=== PATIENT | female | born 1960 | race Caucasian/White ===

== ENCOUNTER 2017-02-27 09:44 | Emergency (ER) | payer BC ==
--- NOTE | 2017-02-27 11:47 | ED Physician Documentation ---
PD HPI HEADACHE - Stated complaint Stated Complaint: HEADACHE - Chief complaint Chief Complaint: Neuro - History obtained from History obtained from: Patient - History of Present Illness Timing - onset: How many days ago (2) Timing - onset during: Light activity Timing - duration: Days (2) Timing - details: Gradual onset, Still present Worst headache ever?: No: Worst headache ever? Location: Front, Right Quality: Throbbing, Aching Associated symptoms: Nausea, Vision changes (light sensitive). No: Fever, Stiff neck, Vomiting, Numbness, Syncope Improved by: No: Meds Worsened by: Light, Noise Contributing factors: No: Anticoagulated, Recent illness, Trauma Similar symptoms before: Diagnosis (migraines intermittently) Recently seen: Not recently seen Review of Systems Constitutional: denies: Fever, Chills Nose: denies: Rhinorrhea / runny nose, Congestion, Sinus pressure / pain Throat: denies: Sore throat Cardiac: denies: Chest pain / pressure, Palpitations Respiratory: denies: Cough GI: reports: Nausea. denies: Abdominal Pain, Vomiting, Diarrhea Skin: denies: Rash, Lesions Neurologic: reports: Generalized weakness. denies: Focal weakness, Numbness, Difficulty speaking, Syncope Endocrine: denies: Weight loss, Easy bruising / bleeding PD PAST MEDICAL HISTORY - Past Medical History Past Medical History: Yes Neuro: Headache/migraine - Past Surgical History Past Surgical History: Yes /[employer]: Hysterectomy - Present Medications Home Medications: Ambulatory Orders Medication Instructions Recorded Confirmed Botox 02/27/17 Bupropion HCl [Bupropion Xl] 150 mg PO DAILY 02/27/17 02/27/17 Duloxetine HCl 60 mg PO BID 02/27/17 02/27/17 Estradiol [Estradiol Transdermal 02/27/17 Patch] Fluticasone Propionate [Flovent 02/27/17 Diskus] Meperidine HCl 50 mg PO PRN PRN 02/27/17 02/27/17 Metoclopramide [Reglan] 10 mg PO Q6H PRN #15 tablet 02/27/17 Oxycodone HCl/Acetaminophen 1 tab PO PRN PRN 02/27/17 02/27/17 [Oxycodone-Acetaminophen 5-325] Prednisone 10 mg PO DAILY #20 tablet 02/27/17 Prednisone 10 mg PO PRN PRN 02/27/17 02/27/17 Spheno 02/27/17 Sumatriptan Succinate [Imitrex] 6 mg SQ PRN PRN 02/27/17 02/27/17 Thyroid,Pork [[place] Thyroid] 90 mg PO DAILY 02/27/17 02/27/17 Zolpidem Tartrate 5 mg PO DAILY 02/27/17 02/27/17 - Allergies Allergies/Adverse Reactions: Allergies Allergy/AdvReac Type Severity Reaction Status Date / Time acetaminophen [From Vicodin] Allergy Unknown Verified 02/27/17 09:52 gabapentin [From Neurontin] Allergy Unknown Verified 02/27/17 09:52 hydrocodone bitartrate * Allergy Unknown Verified 02/27/17 09:52 [From Vicodin] oxycodone HCl * Allergy Unknown Verified 02/27/17 09:52 [From OxyContin] tizanidine HCl * Allergy Unknown Verified 02/27/17 09:52 [From Zanaflex] - Social History Does the pt smoke?: No Smoking Status: Never smoker PD ED PE NORMAL - Vitals Vital signs reviewed: Yes - General General: Alert and oriented X 3, Well developed/nourished, Other (appears uncomfortable and light sensitive. ) - HEENT HEENT: PERRL, EOMI, Moist mucous membranes, Pharynx benign - Neck Neck: Supple, no meningeal sign, No adenopathy - Cardiac Cardiac: RRR, No murmur - Respiratory Respiratory: Clear bilaterally - Abdomen Abdomen: Normal bowel sounds, Soft, Non tender - Back Back: No CVA TTP - Derm Derm: Normal color, No rash - Extremities Extremities: No tenderness to palpate, Normal ROM s pain, No edema, No calf tenderness / cord - Neuro Neuro: Alert and oriented X 3, adoption counselor 2-12 intact, No motor deficit, No sensory deficit, Normal speech - Psych Psych: Normal mood, Normal affect Results - Vitals Vitals: Oxygen O2 Source Room air PD MEDICAL DECISION MAKING - ED course Complexity details: considered differential (history of migraines periodically, is not local. Has care plan from her Neurologist which includes IV fluids, Phenergan and Demerol and is dated from 2012. Dicussed with patient common meds given for headache, but did also give dose of pain meds. Discussed with her that would want to see more uptodate care plan from a specialist for subsequent visits. ), d/w patient Departure - Departure Disposition: 01 Home, Self Care Clinical Impression: Migraine Qualifiers: Migraine type: unspecified Status migrainosus presence: without status migrainosus Intractability: not intractable Qualified Code(s): G43.909 - Migraine, unspecified, not intractable, without status migrainosus Condition: Stable Record reviewed to determine appropriate education?: Yes Instructions: ED Headache Migraine Prescriptions: Prednisone 10 mg PO DAILY #20 tablet Metoclopramide [Reglan] 10 mg PO Q6H PRN #15 tablet PRN Reason: Nausea / Vomiting Comments: Regular medications. Prednisone daily for 4-5 days. Reglan if needed for nausea. Discharge Date/Time: 02/27/17 13:52
[2017-02-27] MEDS ORDERED: SODIUM CHLORIDE 0.9% 1,000 ML IV ONE (12:02)
[2017-02-27] MEDS ORDERED: KETOROLAC 60 MG/2 ML VIAL IVP STA (12:02)
[2017-02-27] MEDS ORDERED: DEXAMETHASONE 10 MG/ML VIAL PO STA (12:03)
[2017-02-27] MEDS ORDERED: HYDROmorphone 1 MG/ML SYRINGE IVP STA ×2 (12:03→13:15)
[2017-02-27] MEDS ORDERED: METOCLOPRAMIDE 10 MG/2 ML VIAL IVP STA (12:03)
[2017-02-27] MEDS ORDERED: KETOROLAC 30 MG/ML VIAL ONE (12:39)
[2017-02-27] MEDS ORDERED: CHERRY SYRUP 10 ML UDC PO ONE (12:39)
[2017-02-27] MEDS ORDERED: HYDROmorphone 1 MG/ML SYRINGE ONE ×2 (12:39→13:24)
[2017-02-27] MEDS ORDERED: DEXAMETHASONE 10 MG/ML VIAL ONE (12:40)
[2017-02-27] MEDS ORDERED: METOCLOPRAMIDE 10 MG/2 ML VIAL IVP ONE (12:40)
[2017-02-27 12:47] VITALS: BP 112/71
== END 2017-02-27 13:52 | disposition home or self-care (01) ==
LOC: ED 09:44
DX: G43.909 Migraine, unspecified, not intractable, without status migrainosus (principal)
CPT/HCPCS: 96374; 96375; 96376; 99283; 99284; A9270; J1170